=== PATIENT | female | born 1985 | race Two or more races ===

== ENCOUNTER 2021-02-21 14:15 | Inpatient (IN) | payer OTHER ==
[~2021-02-21] VITALS: Ht 154.9 cm; Wt 70.8 kg
[2021-03-08] MEDS ORDERED: PRENATAL TABLE1 EAC1 (08:40)
== END 2021-03-10 14:11 | disposition home or self-care (01) | DRG 807 ==
LOC: SURH 03-07 14:15 → LDR 03-08 07:24 → SURG-SUITE 03-08 07:24 → OB/GYN 03-14 14:15
PROVIDERS: ADMIT Obstetrics & Gynecology Maternal & Fetal Medicine; ATTEND Obstetrics & Gynecology Maternal & Fetal Medicine
PROC: 10E0XZZ Delivery of Products of Conception, External Approach (ICD-10-PCS; principal; 2021-03-08)
PROC: 0HQ9XZZ Repair Perineum Skin, External Approach (ICD-10-PCS; 2021-03-08)
PROC: 0W8NXZZ Division of Female Perineum, External Approach (ICD-10-PCS; 2021-03-08)
PROC: 10907ZC Drainage of Amniotic Fluid, Therapeutic from Products of Conception, Via Natural or Artificial Opening (ICD-10-PCS; 2021-03-08)
PROC: 3E033VJ Introduction of Other Hormone into Peripheral Vein, Percutaneous Approach (ICD-10-PCS; 2021-03-08)
PROC: 4A1HXFZ Monitoring of Products of Conception, Cardiac Rhythm, External Approach (ICD-10-PCS; 2021-03-08)
DX: O70.0 First degree perineal laceration during delivery (principal); Z37.0 Single live birth; Z3A.39 39 weeks gestation of pregnancy